=== PATIENT | female | born 1940 | race Caucasian/White ===

== ENCOUNTER → 2017-01-04 | Outpatient (CLI) | payer MEDICARE, BC ==
[~2017-01-04] MED LIST: ALEVE 220MG220 MG PO; ASPIRIN E.C. 8181 MG PO; CALCIUM 500 + D1 TA1 PO; CIPRO 500MG TA500 MG PO; FLAGYL 250250 MG/TAB PO; IMITREX25 MG PO; MIRALAX510G PO; MULTIVITAMIN FO1 CAP PO; PREMARIN0.625 MG PO; SUPER EPA 1201200 MG PO; VITAMIN D5000 IU PO
== END ==
LOC: MC.RAD 07:00
DX: Z12.31 Encounter for screening mammogram for malignant neoplasm of breast (principal); Z98.890 Other specified postprocedural states

== ENCOUNTER 2017-06-12 09:53 | Emergency (ER) | payer MEDICARE, BC ==
[~2017-06-12] VITALS: Ht 172.7 cm; Wt 77.3 kg
[2017-06-12 09:56] VITALS: TEMP 97.8
[2017-06-12] MEDS ORDERED: ZITHROMAX Z PA250 MG PO (10:04)
[2017-06-12 10:56] LABS: BASO % 0.2 % (0.0-2.0); EOS % 0.2 % (0-4.0); GRAN # 3.8 (1.4-6.5); GRAN % 74.7 % (42.2-75.2); HEMATOCRIT 44.2 % (37.0-47.0); HEMOGLOBIN 14.8 g/dl (12.5-16.0); LYMPH # 0.7 (1.2-3.4); LYMPH % 13.5 % (20.0-51.0); MEAN CELL VOLUME 93 fl (80.0-100.0); MEAN CORPUSCULAR HEMOGLOBIN 31 pg (27.0-31.0); MEAN CORPUSCULAR HGB CONC 34 g/dl (33.0-37.0); MEAN PLATELET VOLUME 8.4 fl (7.4-10.4); MONO # 0.6 (0.1-0.6); MONO % 10.8 % (1.7-9.3); PLATELET COUNT 242 K/mm3 (130-400); RED BLOOD COUNT 4.77 M/mm3 (4.10-5.30); REDCELL DISTRIBUTION WIDTH-CV 12.3 % (11.5-14.5)
[2017-06-12 11:08] LABS: ALBUMIN 4.2 gm/dL (3.5-5.0); BILIRUBIN,TOTAL 0.5 mg/dL (0.0-1.0); C-REACTIVE PROTEIN 2.6 mg/dL (0.0-0.9); CALCIUM 9.6 mg/dL (8.4-10.2); CREATININE, serum 1.04 mg/dL (0.52-1.25); POTASSIUM 4.3 mmol/L (3.4-5.0); TOTAL PROTEIN 7.1 gm/dL (6.4-8.2)
[2017-06-12 11:10] LABS: INFLUENZA A NEGATIVE; INFLUENZA B NEGATIVE
[2017-06-12] MEDS ORDERED: CIPRO 500MG TA500 MG PO (12:50)
[2017-06-12] MEDS ORDERED: FLAGYL500 MG PO (12:50)
[2017-06-12 12:51] VITALS: BP 140/83; PULSE 77
== END 2017-06-12 13:07 | disposition home or self-care (01) ==
LOC: COL.ER 09:53
PROVIDERS: Emergency Medicine
DX: K52.9 Noninfective gastroenteritis and colitis, unspecified (principal)
CPT/HCPCS: J7030

== ENCOUNTER → 2018-01-25 | Outpatient (CLI) | payer MEDICARE, BC ==
[~2018-01-25] MED LIST changes: +FLAGYL500 MG PO; +ZITHROMAX Z PA250 MG PO
== END ==
LOC: MC.RAD 12-13 07:00
DX: Z12.31 Encounter for screening mammogram for malignant neoplasm of breast (principal)

== ENCOUNTER → 2019-01-26 | Outpatient (CLI) | payer MEDICARE, BC | LOC: MC.RAD 06:52 | DX: Z12.31 Encounter for screening mammogram for malignant neoplasm of breast (principal); Z98.82 Breast implant status ==

== ENCOUNTER → 2019-01-31 | Outpatient (CLI) | payer MEDICARE, BC | LOC: MC.RAD 09:54 | DX: N64.89 Other specified disorders of breast (principal) ==

== ENCOUNTER 2019-05-15 18:21 | Emergency (ER) | payer MEDICARE ==
[~2019-05-15] VITALS: Ht 162.6 cm; Wt 77.3 kg
[2019-05-15 18:40] VITALS: TEMP 98.2
[2019-05-15 19:59] LABS: BASO # 0.1 (0.0-0.2); BASO % 1.1 % (0.0-2.0); EOS # 0.1 (0.0-0.7); EOS % 1.5 % (0-4.0); GRAN # 3.9 (1.4-6.5); GRAN % 63.4 % (42.2-75.2); HEMATOCRIT 41.8 % (37.0-47.0); LYMPH # 1.6 (1.2-3.4); LYMPH % 25.2 % (20.0-51.0); MEAN CELL VOLUME 93 fl (80.0-100.0); MEAN CORPUSCULAR HEMOGLOBIN 31 pg (27.0-31.0); MEAN CORPUSCULAR HGB CONC 34 g/dl (33.0-37.0); MEAN PLATELET VOLUME 8.6 fl (7.4-10.4); MONO # 0.5 (0.1-0.6); MONO % 8.5 % (1.7-9.3); PLATELET COUNT 254 K/mm3 (130-400); RED BLOOD COUNT 4.49 M/mm3 (4.10-5.30)
[2019-05-15 20:27] LABS: ERYTHROCYTE SEDIMENTATION RATE 9 mm/hr (0-30)
[2019-05-15 20:47] LABS: ALANINE AMINOTRANSFERASE 18 U/L (9-52); ALBUMIN 4.2 gm/dL (3.5-5.0); ALKALINE PHOSPHATASE 67 U/L (50-136); ANION GAP 9 mmol/L (7-16); AST,SGOT 27 U/L (15-37); BILIRUBIN,TOTAL 0.4 mg/dL (0.0-1.0); BLOOD UREA NITROGEN 35 mg/dL (7-17); CALCIUM 9.2 mg/dL (8.4-10.2); CARBON DIOXIDE 24 mmol/L (22-30); CHLORIDE 107 mmol/L (98-107); CREATININE, serum 1.18 (0.52-1.25); GLUCOSE 79 mg/dL (74-106); POTASSIUM 4.2 mmol/L (3.4-5.0); SODIUM 140 mmol/L (137-145)
[2019-05-15 20:49] LABS: C-REACTIVE PROTEIN < 0.5 mg/dL (0.0-0.9)
[2019-05-15 22:37] VITALS: BP 138/72; PULSE 80
== END 2019-05-15 22:37 | disposition home or self-care (01) ==
LOC: COL.ER 18:21
PROVIDERS: Emergency Medicine
DX: M79.2 Neuralgia and neuritis, unspecified (principal); Z79.82 Long term (current) use of aspirin
CPT/HCPCS: J1170; J2405; J7030

== ENCOUNTER → 2020-01-29 | Outpatient (CLI) | payer MEDICARE | LOC: MC.RAD 09:10 | DX: Z12.31 Encounter for screening mammogram for malignant neoplasm of breast (principal) ==

== ENCOUNTER → 2021-01-31 | Outpatient (CLI) | payer MEDICARE | LOC: MC.RAD 07:00 | DX: Z12.31 Encounter for screening mammogram for malignant neoplasm of breast (principal); Z98.82 Breast implant status ==

== ENCOUNTER → 2022-02-02 | Outpatient (CLI) | payer MEDICARE | LOC: MC.RAD 07:00 | DX: Z12.31 Encounter for screening mammogram for malignant neoplasm of breast (principal) ==

== ENCOUNTER → 2024-02-07 | Outpatient (CLI) | payer MEDICARE | LOC: MC.RAD 07:20 | DX: Z12.31 Encounter for screening mammogram for malignant neoplasm of breast (principal) ==